=== PATIENT | male | born 1995 | race Caucasian/White ===

== ENCOUNTER 2024-07-25 15:54 | Emergency (ER) | payer MEDICAID, SELFPAY ==
--- NOTE | ~2024-07-25 | CT_ITS ---
CLINICAL HISTORY: r flank pain ?stone CT abdomen and pelvis without contrast Comparison: None Findings: The lung bases are clear. The gallbladder and solid organs are within normal limits. No renal stones. No bowel obstruction, pneumoperitoneum, or pneumatosis. Pelvic contents unremarkable. Appendix is not seen. No acute fracture. IMPRESSION: No acute findings. This document has been electronically signed by: Jacques Forde MD on 07/25/2024 20:26:55
--- NOTE | ~2024-07-25 | US_ITS ---
CLINICAL HISTORY: R TESTICULAR PAIN US Scrotum with Doppler Comparison: None Findings: Right testicle normal size and echotexture, 4.5 x 2.2 x 3.2 cm. Left testicle normal size and echotexture, 5.1 x 1.8 x 2.9 cm. Color Doppler and arterial/venous spectral tracings of both testicles within normal limits. Bilateral epididymal cysts. Calcification within the right epididymal tail. Left appendix testes measuring 4 mm. No varicoceles. No hydroceles. IMPRESSION: No acute process. No evidence of torsion. This document has been electronically signed by: Jacques Forde MD on 07/25/2024 17:56:36
--- NOTE | ~2024-07-25 | US_ITS ---
Please refer to the combined report dictated under US SCROTUM DOPPLER. Electronically signed by: Adal Rodriguez MD 07/26/2024 09:22 AM [facility]
[2024-07-25 16:34] VITALS: BP 127/59; PULSE 86; RESP 16; TEMP 37.6; O2SAT 99; BMI 20.2
--- NOTE | 2024-07-25 16:36 | ED.GENADULT ---
HPI - General Adult General Chief complaint: Urogenital-Male Stated complaint: Back pain, groin pain Time Seen by Provider: 07/25/24 19:22 Source: patient Mode of arrival: ambulatory Limitations: no limitations History of Present Illness ED Provider: HPI narrative: Patient no significant past medical history complaining of right flank pain and right testicular pain since he woke up in a.m. no trauma no hematuria no dysuria no history of similar pain in the past no history of kidney stone Related Data Previous Rx's ?Medication ?Instructions ?Recorded cyclobenzaprine 10 mg tablet 10 mg PO Q8H #20 tabs 07/25/24 tramadol 50 mg tablet 50 mg PO Q6H PRN pain #20 tabs 07/25/24 Allergies Allergy/AdvReac Type Severity Reaction Status Date / Time No Known Allergies Allergy Verified 07/25/24 16:38 Review of Systems Review of Systems: Yes all other systems are reviewed and are negative PMFSH Social History Social History Advance Directives: No Advance Directives Information Provided: No Physical Exam ED Vital Signs: BMI result Body Mass Index 20.2 Appearance: Alert. Oriented X3. No acute distress. Neck: Normal inspection. Neck supple. CVS: Normal heart rate and rhythm. Pulses normal. Respiratory: No respiratory distress. Equal air entry bilateral, no wheezing/rales/rhonchi Abdomen: Soft and nontender. Bowel sounds are present, no mass palpable, no CVA tenderness : Normal testicle normal epididymis scrotum normal no skin discoloration no tenderness Skin: Skin warm and dry. Normal skin color. Normal skin turgor. Extremities: No lower extremity edema. No calf tenderness Neuro: Oriented X 3. Course Course Course Narrative: This is an RME: Additional HPI, ROS, PE not included below will be deferred to primary provider. RME assessment and note performed by: Sara Machado PA-C This is a [id number]-male with no known medical problems, who presents to the ER with complaints of right testicular pain. No urinary symptoms. No CVA tenderness Plan: US scrotum, labs, UA Medications Administered Discontinued Medications Generic Name Dose Route Start Last Admin Trade Name Freq PRN Reason Stop Dose Admin Oxycodone HCl 10 mg 07/25/24 19:47 07/25/24 19:58 Oxycodone Hcl Immed Release 5 Mg Tablet PO 07/25/24 19:48 10 mg ONCE ONE Administration Medical Decision Making Medical Decision Making [facility] Narrative: Patient with testicular pain without any local findings ultrasound was negative CT scan of the abdomen was done to rule out any kidney stone which was also negative patient has nonspecific symptoms and pain etiology not clear advised to follow up with PCP/urologist Differential Diagnosis Differential Diagnoses: The differential diagnosis associated with the presentation includes Epididymitis/testicular torsion/kidney stone Lab Data [facility] Lab Attestation statement: I reviewed the patient's lab results. 07/25/24 17:34 07/25/24 17:34 Labs: Lab Results 07/25/24 07/25/24 Range/Units 17:34 19:38 WBC 8.2 (4.8-10.8) X10*3/uL RBC 4.52 L (4.60-5.80) X10*6/uL Hgb 15.0 (14.0-18.0) g/dl Hct 42.9 (42.0-52.0) % MCV 94.9 (80.0-98.0) fL MCH 33.2 H (27.0-33.0) pg MCHC 35.0 (31.0-36.0) g/dl RDW 12.6 (11.0-16.0) % Plt Count 178 (160-400) X10*3/uL MPV 9.5 (9.4-12.4) fL Immature Gran % (Auto) 0.2 (0.0-0.4) % Neut % (Auto) 56.2 (45-73) % Lymph % (Auto) 32.6 (20-40) % Citrus % (Auto) 8.8 (2-11) % Eos % (Auto) 1.6 (0-4) % Baso % (Auto) 0.6 (0-2) % Lymph # (Auto) 2.7 (1.2-4.9) X10*3/uL Citrus # (Auto) 0.7 (0.1-1.2) X10*3/uL Eos # (Auto) 0.1 (0.0-0.4) X10*3/uL Baso # (Auto) 0.1 (0.0-0.2) X10*3/uL Abs Immat Gran (auto) 0.02 (0.00-0.03) X10*3/uL Absolute Neuts (auto) 4.6 (2.0-8.3) x10*3/uL Absolute Nucleated RBC 0.000 (0.0-0.012) X10*3/uL Nucleated RBC % (auto) 0.0 (0.0-0.2) /100WBC Sodium 141 (135-145) mmol/L Potassium 3.9 (3.3-5.1) mmol/L Chloride 104 (96-108) mmol/L Carbon Dioxide 29 (22-29) mmol/L Anion Gap 12 (12-20) BUN 10 (9-16) mg/dL Creatinine 0.87 (0.5-1.4) mg/dL Estim Creat Clear Calc 114.4 Estimated GFR > 60 Random Glucose 93 (60-115) mg/dL Calcium 8.8 (8.4-10.2) mg/dL Total Bilirubin 0.6 (0.0-1.0) mg/dL Direct Bilirubin 0.2 (0.0-0.5) mg/dL AST 20 (5-37) U/L ALT 16 (0-40) U/L Alkaline Phosphatase 39 (39-117) U/L Total Protein 7.1 (6.5-8.0) g/dL Albumin 4.5 (3.5-5.0) g/dL Urine Color Yellow Urine Appearance Clear Urine pH 8.0 (5.0-9.0) Ur Specific [place] 1.010 (1.005-1.025) Urine Protein Negative (Neg-Trace) mg/dL Urine Glucose (UA) Negative (Negative) mg/dL Urine Ketones Negative (Negative) mg/dL Urine Blood Negative (Negative) Urine Nitrite Negative (Negative) Ur Leukocyte Esterase Negative (Negative) Chlam trachomat DNA PCR NOT DETECTED (Not Detect.) N.gonorrhoeae DNA (PCR) NOT DETECTED (Not Detect.) Independent Interpretation I performed an independent interpretation of an: Ultrasound and CT Scan Radiology Impression Discussion of test interpretation with radiology: I have reviewed the radiologist's reading. Radiologist Impression: NAD Discharge Plan Discharge Clinical Impression: Back pain Patient Disposition: Home, Self-Care Instructions: Back Pain (ED) Additional Instructions: Cause of your pain is not clear likely musculoskeletal Your CT scan of the abdomen and ultrasound of the testicles negative Take pain medication muscle relaxant as prescribed Follow with your PCP if not better Prescriptions: New cyclobenzaprine 10 mg tablet 10 mg PO Q8H Qty: 20 0RF tramadol 50 mg tablet 50 mg PO Q6H PRN (Reason: pain) Qty: 20 0RF Interventions: ED Discharge Assessment Last Done: 07/25/24 21:18 Discharge Date/Time: 07/25/24 21:18 Print Language: Croatian
[2024-07-25 17:39] LABS: MANUAL DIFF FLAG NO
[2024-07-25 17:42] LABS: Basophils Absolute Auto 0.1 X10*3/uL (0.0-0.2); Basophils Percent Auto 0.6 % (0-2); Eosinophils Absolute Auto 0.1 X10*3/uL (0.0-0.4); Eosinophils Percent Auto 1.6 % (0-4); Hematocrit 42.9 % (42.0-52.0); Imm Gran Abs Auto 0.02 X10*3/uL (0.00-0.03); Imm Gran Pct Auto 0.2 % (0.0-0.4); Lymphocytes Absolute Auto 2.7 X10*3/uL (1.2-4.9); Lymphocytes Percent Auto 32.6 % (20-40); Mean Corpuscular Hemoglobin 33.2 pg (27.0-33.0); Mean Corpuscular Volume 94.9 fL (80.0-98.0); Mean Platelet Volume 9.5 fL (9.4-12.4); Monocytes Absolute Auto 0.7 X10*3/uL (0.1-1.2); Monocytes Percent Auto 8.8 % (2-11); Neutrophils Absolute Auto 4.6 x10*3/uL (2.0-8.3); Neutrophils Percent Auto 56.2 % (45-73); Platelet Count 178 X10*3/uL (160-400); Red Blood Count 4.52 X10*6/uL (4.60-5.80); Red Cell Distribution Width 12.6 % (11.0-16.0); White Blood Count 8.2 X10*3/uL (4.8-10.8)
[2024-07-25 17:55] LABS: Alanine Aminotransferase 16 U/L (0-40); Albumin Level 4.5 g/dL (3.5-5.0); Alkaline Phosphatase 39 U/L (39-117); Anion Gap 12 (12-20); Aspartate Amino Transferase 20 U/L (5-37); Bilirubin Direct 0.2 mg/dL (0.0-0.5); Bilirubin Total 0.6 mg/dL (0.0-1.0); Blood Urea Nitrogen 10 mg/dL (9-16); Calcium 8.8 mg/dL (8.4-10.2); Carbon Dioxide 29 mmol/L (22-29); Chloride 104 mmol/L (96-108); Creatinine Clr Calc Pharmacy 114.4; Estimated Glomerular Filt Rate > 60; Glucose Random 93 mg/dL (60-115); Potassium 3.9 mmol/L (3.3-5.1); Sodium 141 mmol/L (135-145); Total Protein 7.1 g/dL (6.5-8.0)
--- OUTSIDE RECORDS SUMMARY | 2024-07-25 19:32 | XMS_ITS | Encounter Summary ---
Author Organization [facility] Address [address] [place] [address] Phone Care Team Providers Care Director Of Enrollment Name Role Phone Alfonso Low Primary Care Provider Unavailabl e Encounter Details Date Type Department Care Team (Late st Contact Info) Description 02/03/2017 Conversion Encounter [facility] - [address], [address] [place] [id number] Social History Tobacco Use Types Packs/Day Years Used Date Smoking Tobacco: Never Assessed Sex and Gender Information Value Date Recorded Sex Assigned at Not on file Legal Sex Male 2:51 PM EST Gender Identity Not on file Sexual Orientation Not on file documented as of this encounter Plan of Treatment Not on file documented as of this encounter Visit Diagnoses Not on filedocumented in this encounter Care Teams Director Of Enrollment Relationship Specialty Start Date End Date Alfonso Low PCP - General 08/18/16 documented as of this encounter
--- OUTSIDE RECORDS SUMMARY | 2024-07-25 19:32 | XMS_ITS | Clinical Summary ---
Author Organization [facility] Address [address] [place] [id number] Phone Care Team Providers Care Paralegal Supervisor Name Role Phone Alfonso Low Primary Care Provider Unavailabl e Immunizations Name Administration Dates Next Due DTaP 01/09/1998, 5,1993, 994,1993 Hep B, ped/adol 01/09/1998,01/04/1996,12/06/1995 Hib (PRP-T) 11/03/1994, 4,1993, 994 MMR 02/25/1999,11/03/1994 Meningococcal Conj (Menactra) MCV4P 10/26/2006 OPV 01/09/1998, 5,1993, 994 Tdap 02/24/2006 Varicella 11/09/1997 Social History Tobacco Use Types Packs/Day Years Used Date Smoking Tobacco: Never Assessed Sex and Gender Information Value Date Recorded Sex Assigned at Not on file Legal Sex Male 2:51 PM EST Gender Identity Not on file Sexual Orientation Not on file Last Filed Vital Signs Vital Sign Reading Time Taken Comments Blood Pressure - - Pulse 122 10/27/2012 12:00 AM EDT Temperature 38.2 ??C (100.7 ??F) 10/27/2012 12:00 AM EDT Respiratory Rate - - Oxygen Saturation 95% 10/27/2012 12:00 AM EDT Inhaled Oxygen Concentration - - Weight 69.4 kg (153 lb) 10/27/2012 12:00 AM EDT Height - - Body Mass Index - - Plan of Treatment Health Maintenance Due Date Last Done Comments Varicella Vaccines (2 of 2 - 2-dose childhood series) 03/25/1999 11/09/1997 Consider Men B Vaccine (1 of 2 - Bexsero 2-dose series) 2009 DTaP,Tdap,and Td Vaccines (7 - Td or Tdap) 02/25/2016 02/24/2006, 01/09/1998, 12/23/1994, Additional history exists Influenza Vaccines (#1) 2024 COVID-19 Vaccine ( season) 2024 HIB Vaccines Completed 11/03/1994, 11/27, 1993, Additional history exists Hepatitis B Vaccines Completed 01/09/1998, 01/04/1996, 12/06/1995 IPV Vaccines Completed 01/09/1998, 11/27, 1993, Additional history exists MMR Vaccines Completed 02/25/1999, 11/03/1994 Meningococcal Vaccine Aged Out 10/26/2006 No cristina liza eligible based on patient's age to complete this topic HPV Vaccines Aged Out No longer eligi ble based on patient's age to complete this topic Hepatitis A Vaccines Aged Out No long er eligible based on patient's age to complete this topic Men B Vaccine Aged Out No longer elig ible based on patient's age to complete this topic Pneumococcal Vaccine Aged Out No long er eligible based on patient's age to complete this topic Care Teams Paralegal Supervisor Relationship Specialty Start Date End Date Alfonso Low PCP - General 08/18/16
[2024-07-25 19:44] VITALS: BP 114/73; PULSE 60; RESP 20; TEMP 36.6; O2SAT 98
[2024-07-25 19:47] LABS: Appearance Urine Clear; Color Urine Yellow; Glucose Urine UA Negative (Negative); Leukocyte Esterase Urine Negative (Negative); Nitrite Urine Negative (Negative); Urine Blood Negative (Negative); Urine Ketones Negative (Negative); Urine Protein Negative (Neg-Trace)
[2024-07-25] MEDS: oxyCODONE HCl Immed Release 5 MG TABLET 10 MG PO (19:58)
[2024-07-25 21:18] VITALS: BP 114/73; PULSE 60; RESP 20; TEMP 36.6; O2SAT 98
[2024-07-26 05:54] LABS: CT PCR NOT DETECTED (Not Detect.); NG PCR NOT DETECTED (Not Detect.)
== END 2024-07-25 21:18 | disposition home or self-care (01) ==
PROVIDERS: Physician Assistant Medical; Emergency Provider Internal Medicine
DX: R10.9 Unspecified abdominal pain (principal); N50.811 Right testicular pain
CPT/HCPCS: 36415; 74176; 76870; 80048; 80076; 81003; 85025; 87491; 87591; 93975; 99284

== ENCOUNTER → 2024-07-25 17:05 | Outpatient (BNV) | payer MEDICAID, SELFPAY | PROVIDERS: Visit Provider Radiology Diagnostic Radiology | DX: R10.9 Unspecified abdominal pain (principal); N50.811 Right testicular pain | CPT/HCPCS: 74176; 93975 ==